=== PATIENT | male | born 1985 | race Caucasian/White ===

== ENCOUNTER 2022-02-25 04:09 | Emergency (ER) | payer SELFPAY ==
[2022-02-25 04:11] VITALS: BP 208/125; PULSE 108; RESP 18; TEMP 37.1; O2SAT 98; BMI 27.9
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
[2022-02-25 04:22] VITALS: TEMP 36.6
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
[2022-02-25] MEDS: ketorolac 30 mg/mL INJ 15 MG IM (05:00)
[2022-02-25] MEDS: acetaminophen 500 mg Tablet 1000 MG PO (05:00)
[2022-02-25 05:20] VITALS: BP 210/120; PULSE 98; RESP 18; O2SAT 96
== END 2022-02-25 05:22 | disposition home or self-care (01) ==
PROVIDERS: Emergency Provider Emergency Medicine
DX: S06.0X9A Concussion with loss of consciousness of unspecified duration, initial encounter (principal); S09.8XXA Other specified injuries of head, initial encounter; S00.03XA Contusion of scalp, initial encounter; S80.12XA Contusion of left lower leg, initial encounter; V86.65XA Passenger of 3- or 4- wheeled all-terrain vehicle (ATV) injured in nontraffic accident, initial encounter
CPT/HCPCS: 70450; 72125; 96372; 99284; J1885